=== PATIENT | female | born 1990 | race Caucasian/White ===

== ENCOUNTER 2017-08-20 08:46 | Emergency (ER) | payer SELFPAY ==
[~2017-08-20] VITALS: Ht 157.5 cm; Wt 64.0 kg
[~2017-08-20 08:46] MED LIST: ALBU0.63 NEB; ALPR0.25 PO; IBUP-1222 PO; OXYC-302 PO; PNV1TABL11 PO
[2017-08-20 09:03] VITALS: BP 124/80
[2017-08-20] MEDS ORDERED: DEXAMETHASONE 4 MG TABLET PO ONE (09:30)
[2017-08-20] MEDS ORDERED: HYDROcodone/APAP 7.5-325MG/15ML UDC PO ONE (09:30)
[2017-08-20] MEDS ORDERED: HYDROcodone/APAP 7.5-325MG/15ML UDC ONE (09:35)
[2017-08-20] MEDS ORDERED: DEXAMETHASONE 4 MG/ML, 5ML ONE (09:35)
== END 2017-08-20 09:48 | disposition home or self-care (01) ==
LOC: ED 09:41
DX: J02.0 Streptococcal pharyngitis (principal); E04.9 Nontoxic goiter, unspecified; F17.210 Nicotine dependence, cigarettes, uncomplicated
CPT/HCPCS: 99283

== ENCOUNTER 2019-03-12 18:00 | Emergency (ER) | payer OTHER ==
[~2019-03-12] VITALS: Ht 154.9 cm; Wt 64.5 kg
[2019-03-12 19:03] LABS: MICROSCOPIC AUTO
--- NOTE | 2019-03-12 19:37 | NUR ---
PATIENT PRESENTS TO ED TODAY FOR L FLANK PAIN X 7 MONTHS. PATIENT ALSO REPORTS "NERVE PAIN IN MY LEG THAT WENT DOWN TO MY FOOT", PATIENT AMB TO BATHROOM WITH STEADY GAIT, UA COLLECTED AND SENT TO LAB. AWAITING LABS. NO ADDITIONAL NEEDS AT THIS TIME, CALL LIGHT WITHIN REACH, FAMILY AT BEDSIDE.
[2019-03-12 19:39] LABS: MEAN CORPUSCULAR HEMOGLOBIN 32.2 pg (27.0-34.8); MEAN CORPUSCULAR HGB CONC 33.6 g/dL (32.4-35.8); MEAN CORPUSCULAR VOLUME 95.8 fL (80-100); MEAN PLATELET VOLUME 8.3 fL (7.4-10.4); PLATELET COUNT 273 x10^3/uL (130-400); RED BLOOD COUNT 4.55 x10^6/uL (3.82-5.3); RED CELL DISTRIBUTION WIDTH 13.2 % (9.6-15.2)
[2019-03-12 19:48] LABS: ALANINE AMINOTRANSFERASE 23 U/L (12-78); ALBUMIN 4.1 g/dL (3.4-5.0); ANION GAP 7 mmol/L (5-15); CHLORIDE 108 mmol/L (98-107)
[2019-03-12 19:52] LABS: ALKALINE PHOSPHATASE 81 U/L (45-117); BILIRUBIN,TOTAL 0.3 mg/dL (0.2-1.0); TOTAL PROTEIN 7.8 g/dL (6.4-8.2)
[2019-03-12 19:57] LABS: BASOPHILS # (AUTO) 0.05 x10^3/uL (0-0.1); BASOPHILS % (AUTO) 0 % (0-1); EOSINOPHILS # (AUTO) 0.31 x10^3/uL (0-0.4); EOSINOPHILS % (AUTO) 2 % (1-7); LYMPHOCYTES # (AUTO) 2.26 x10^3/uL (1-3.4); LYMPHOCYTES % (AUTO) 14 % (22-44); MD SCAN; MONOCYTES # (AUTO) 0.87 x10^3/uL (0.2-0.8); MONOCYTES % (AUTO) 5 % (2-9); NEUTROPHILS # (AUTO) 12.85 x10^3/uL (1.8-6.8); NEUTROPHILS % (AUTO) 79 % (42-75)
[2019-03-12 20:04] LABS: MICROSCOPIC AUTO
[2019-03-12 20:06] LABS: CULTURE INDICATED? NO
--- NOTE | 2019-03-12 20:17 | NUR ---
RESULTS BACK, CHART UP FOR RECHECK.
[2019-03-12 20:50] VITALS: BP 129/91
--- NOTE | 2019-03-12 20:50 | NUR ---
NEW ORDERS FOR CT, PATIENT UPDATED ON POC, VS UPDATED IN CHART, PATIENT SITTING IN GURNEY, RESP EVEN UNLABORED. ARIANNE.
== END 2019-03-12 21:51 | disposition home or self-care (01) ==
LOC: ED 20:47
DX: M79.18 Myalgia, other site (principal)
CPT/HCPCS: 36415; 74176; 80053; 81001; 83690; 84702; 85025; 99284